=== PATIENT | male | born 1970 | race Caucasian/White ===

== ENCOUNTER 2022-05-09 08:34 | Emergency (ER) | payer OTHER, SELFPAY ==
--- NOTE | 2022-05-09 08:47 | ED.GENADULT ---
HPI - General Adult General Chief complaint: Unspecified Stated complaint: blood pressure Time Seen by Provider: 05/09/22 08:47 Source: patient Mode of arrival: ambulatory Limitations: no limitations History of Present Illness HPI narrative: 51 y/o male without significant medical history presented for multiple complaints. States 5 days ago he had to leave work due to feeling anxious with chest palpitations. States he then purchased a machine for BP and blood glucose monitoring. Reports BS ranging 60-110, BP 147/90 at home. States he does not eat well, will not eat all day then binge one meal in the evening usually pasta. Says he will feel weak if he eats during the day. States BP has been better since he has been off work the past few days. However he reports about 2 nights ago feeling disoriented, felt like 'he wasn't going to wake up,' and had night sweats. Endorses nocturia about 3 times each night. States he may have urinated on himself or it was sweat. Currently denies cp, palpitations, cough, sob, fatigue, wheezing, n/v/d, urinary complaints, fever or chills. Tried to establish with a pcp this week but will take months to be seen. Patient is requesting lab work. Smokes 1.5PPD, marijuana, Drinks alcohol Tommy Beam large bottle per week. Drinks coffee daily, 1-2 cups. He does not have PCP. Related Data Home Medications Medication Instructions Recorded Confirmed No Home Medications 05/09/22 05/09/22 Allergies Allergy/AdvReac Type Severity Reaction Status Date / Time mold Allergy Unknown Verified 06/30/17 21:20 naproxen Allergy Unknown Skin Verified 06/30/17 21:20 Reaction paroxetine Allergy Unknown nervous Verified 06/30/17 21:20 pollen extracts Allergy Unknown Verified 06/30/17 21:20 No Known Allergies Allergy Unverified 08/11/11 10:55 Review of Systems Review of Systems: CONSTITUTIONAL: Denies body aches, fever, chills, Reports sweats. EYES: Denies visual changes, redness, or discharge. ENT: Denies rhinorrhea, congestion, sore throat, or otalgia. CARDIOVASCULAR: Denies chest pain or edema. RESPIRATORY: Denies cough or dyspnea. GASTROINTESTINAL: Denies abdominal pain, nausea, vomiting, or diarrhea. GENITOURINARY: Denies dysuria or hematuria. SKIN: Denies rash, itching, or wounds. MUSCULOSKELETAL: Denies back pain, joint pain, or myalgia. NEUROLOGIC: Denies headache, numbness, tingling, or weakness. PSYCH: Endorses anxiety. All systems reviewed & are unremarkable except as noted in HPI and below PMFSH Comments At time of signature, I have reviewed and agree with nursing past medical, surgical, social and family history unless otherwise noted. Please see nursing chart for further information. There is no relevant family history pertinent to the presenting complaint Exam Narrative: GENERAL: Well-appearing, appears older than stated age HEAD: Normocephalic, atraumatic. EYES: EOMI. No redness or drainage. Conjunctivae normal. ENT: Mucous membranes pink and moist. No rhinorrhea. TMs normal bilaterally. Throat normal. Uvula midline. NECK: Normal AROM. Supple. No lymphadenopathy. CHEST: No respiratory distress. Clear to auscultation. HEART: Tachycardic, Regular rhythm. No murmur appreciated. Normal peripheral pulses. ABDOMEN: Soft, nontender, nondistended, normal active bowel sounds. SKIN: Warm, dry, no rash. Capillary refill normal. Color is jay. Poor skin turgor. NEURO: Alert and oriented x3. Gait steady. PSYCH: Anxious, talkative. Course Course Emergency Course: Patient is aware of diagnosis, understands and agrees to treatment plan. Anticipatory guidance given. Patient agrees to follow-up as directed and is aware of reasons to seek care at the emergency department. Portions of this record may have been created with voice recognition software Level of Care: Express Care Visit Medical Decision Making [facility] Narrative Medical decision making narrative: Patient presented with multiple complai
[2022-05-09 08:53] LABS: Glucose Point of Care 86 mg/dl (65-105)
== END 2022-05-09 09:20 | disposition home or self-care (01) ==
PROVIDERS: Emergency Provider Nurse Practitioner Family
DX: R03.0 Elevated blood-pressure reading, without diagnosis of hypertension (principal); F41.9 Anxiety disorder, unspecified; F17.290 Nicotine dependence, other tobacco product, uncomplicated; F12.90 Cannabis use, unspecified, uncomplicated
CPT/HCPCS: 82948; 99202; G0463

== ENCOUNTER 2022-05-09 11:40 | Emergency (ER) | payer OTHER, SELFPAY ==
[2022-05-09 11:55] VITALS: BP 164/98; PULSE 113; RESP 18; TEMP 37.1; O2SAT 100
[2022-05-09 11:59] LABS: Glucose Point of Care 105 mg/dl (65-105)
--- NOTE | 2022-05-09 13:24 | ECG_ITS ---
Measurements Intervals [place] Rate: 73 P: 84 DC: 149 QRS: 47 QRSD: 84 T: 73 QT: 360 QTc: 398 Interpretive Statements SINUS RHYTHM POSSIBLE LEFT ATRIAL ENLARGEMENT CANNOT RULE OUT SEPTAL INFARCT, AGE INDETERMINATE ABNORMAL ECG NO PREVIOUS ECG AVAILABLE FOR COMPARISON Electronically Signed On 05-09-2022 14:43:48 QUALITY CONTROL TECHNICIAN by Wayne Camarena D.O.
--- NOTE | 2022-05-09 13:25 | ED.GENADULT ---
HPI - General Adult General Chief complaint: Recheck/Abnormal Lab/Rx Stated complaint: high blood sugars Time Seen by Provider: 05/09/22 13:14 History of Present Illness HPI narrative: 51-year-old male here for evaluation of multiple medical complaints. Patient tells me that he has had issues with blood sugar control at home. States I cannot get my blood sugar numbers above 90 no matter what I do . He is not diabetic, when asked why he has a blood sugar reader said he likes to monitor his levels. He also notes intermittent issues with blood pressure control but does not have a cuff at home. He feels levels are out of balance . He has a history of alcohol use (1 pint of hilda beam/week) and quit 2 weeks ago. Denies history of withdrawal symptoms or seizures. Reports anxiety but denies suicidal or homicidal ideation. No chest pain, shortness of breath, fevers or chills, nausea or vomiting, leg swelling, syncope. He is not established with a primary care provider. Related Data Home Medications Medication Instructions Recorded Confirmed No Home Medications 05/09/22 05/09/22 Allergies Allergy/AdvReac Type Severity Reaction Status Date / Time mold Allergy Unknown Verified 06/30/17 21:20 naproxen Allergy Unknown Skin Verified 06/30/17 21:20 Reaction paroxetine Allergy Unknown nervous Verified 06/30/17 21:20 pollen extracts Allergy Unknown Verified 06/30/17 21:20 No Known Allergies Allergy Unverified 08/11/11 10:55 Review of Systems Review of Systems: Gen: Denies fevers or chills Eyes: Denies eye pain or visual change ENT: Denies congestion Respiratory: Denies shortness of breath or cough CV: Denies chest pain or palpitations GI: Denies abdominal pain nausea, emesis or diarrhea : denies burning, urgency, frequency or hematuria Musculoskeletal: Denies back pain or muscle pain Neuro: Denies numbness, tingling, weakness or focal weakness Skin: Denies rash Except as documented, all other systems reviewed and negative Exam Narrative: APPEARANCE: Anxious appearing. No acute distress, nontoxic, resting in bed EYES: EOMI HEENT: Normocephalic, atraumatic, OMM RESPIRATORY: No respiratory distress Clear to auscultation bilaterally with no rhonchi wheezing or rales. CARDIOVASCULAR: Regular rate and rhythm without murmurs rubs or gallops. ABDOMINAL: Soft, nontender, nondistended, no rebound or guarding MUSCULOSKELETAL: Moves all extremities. No clubbing, cyanosis or edema. NEURO: Awake and alert. Following commands, speech normal, no focal deficits SKIN: Warm, dry. No rashes lesions or abrasions PSYCHIATRIC: Normal affect/mood Course Vital Signs Vital signs: Vital Signs Temperature 98.8 F 05/09/22 11:55 Pulse Rate 113 H 05/09/22 11:55 Respiratory Rate 18 05/09/22 11:55 Blood Pressure 164/98 H 05/09/22 11:55 Pulse Oximetry 100 05/09/22 11:55 Oxygen Delivery Room Air 05/09/22 11:55 Temperature 98.8 F 05/09/22 11:55 Pulse Rate 113 H 05/09/22 11:55 Respiratory Rate 18 05/09/22 11:55 Blood Pressure 164/98 H 05/09/22 11:55 Pulse Oximetry 100 05/09/22 11:55 Oxygen Delivery Room Air 05/09/22 11:55 Medical Decision Making [facility] Narrative Medical decision making narrative: 51-year-old male here for evaluation of multiple medical complaints. Patient is difficult to orient and is a poor historian. He is initially tachycardic which resolved without intervention. Vital signs otherwise normal. Suspect large component of his symptoms are due to anxiety; he is not suicidal or homicidal. His basic lab work is unremarkable, patient was most concerned about his blood counts and his blood sugar, which again are normal. EKG is nonischemic and is a normal rate; patient is not complaining of any chest pain or symptoms concerning for ischemia. He will be discharged to follow-up with a primary care provider. Vital Signs Vital Signs: Vital Signs Temperature 98.8 F 05/09/22 11:55 Puls
[2022-05-09 13:39] LABS: Basophils Percent Auto 0.3 % (0.2-1.2); Eosinophils Absolute Auto 0.1 K/mm3 (0-0.3); Eosinophils Percent Auto 0.7 % (0-4.4); Hematocrit 46.5 % (42.0-52.0); Hemoglobin 15.8 g/dL (14.0-18.0); Immature Granulocyte Absolute 0.02 K/mm3 (0.00-0.031); Immature Granulocyte Percent A 0.2 % (0-0.5); Lymphocytes Absolute Auto 2.21 K/mm3 (0.9-3.2); Lymphocytes Percent Auto 21.7 % (18.3-44.2); Mean Corpuscular Hemoglobin 32.7 pg (26-34); Mean Corpuscular Volume 96.3 fl (80-100); Mean Platelet Volume 9.4 fl (7.4-10.4); Monocytes Absolute Auto 0.9 K/mm3 (0.1-0.6); Monocytes Percent Auto 8.8 % (2.6-8.5); Neutrophils Percent Auto 68.3 % (45.5-73.1); Platelet Count Result 323 k/mm3 (150-375); Red Blood Count 4.83 M/mm3 (4.6-6.20); Red Cell Distribution Width 14.2 % (11.5-14.5); White Blood Count 10.2 K/mm3 (4.5-10.0)
[2022-05-09 14:01] LABS: Alanine Aminotransferase 61 U/L (6-50); Alkaline Phosphatase 91 U/L (38-126); Anion Gap 10 mmol/L (8-16); Aspartate Amino Transferase 42 U/L (17-59); Bilirubin,Total 0.6 mg/dL (0.2-1.3); Blood Urea Nitrogen 21 mg/dL (9-20); Calcium 9.3 mg/dL (8.4-10.2); Carbon Dioxide 24 mmol/L (22-30); Chloride 103 mmol/L (98-107); Estimated CRCL calculation 86 ml/min; Estimated Glomerular Filt Rate > 60; Glucose 105 mg/dL (65-110); Lipase 51 U/L (23-300); Potassium 4.8 mmol/L (3.4-5.0); Sodium 137 mmol/L (137-145)
== END 2022-05-09 14:17 | disposition home or self-care (01) ==
PROVIDERS: Physician Assistant; Emergency Provider Emergency Medicine
DX: R03.0 Elevated blood-pressure reading, without diagnosis of hypertension (principal); R94.31 Abnormal electrocardiogram [ECG] [EKG]
CPT/HCPCS: 36415; 80053; 82948; 83690; 85025; 93005; 99283

== ENCOUNTER 2022-05-10 16:18 | Emergency (ER) | payer OTHER, SELFPAY ==
[2022-05-10] VITALS (15 sets, daily range): BP systolic 136–157; BP diastolic 83–111; PULSE 73–108; RESP 14–29; TEMP 36.9; O2SAT 98–100
--- NOTE | ~2022-05-10 | CT_ITS ---
EXAMINATION: CT brain wo con INDICATION: Dizziness and lethargy, lack of coordination COMPARISON: None TECHNIQUE: Standard unenhanced head CT. The dose-length product (DLP) was 605.33 mGy-cm. The mA was a djusted according to patient size. Iterative reconstruction technique was employed. FINDINGS: There is no intracranial hemorrhage, acute infarction, or abnormal mass lesion. The ventric les are normal. There is no abnormal mass effect or midline shift. The woods-white matter differentiat ion is normal. The basal cisterns are patent. The orbits are normal. The paranasal sinuses, mastoids and calvarium are normal. IMPRESSION: 1. No acute intracranial abnormality. Reviewed, dictated and finalized at location F. GRATION MANAGER
--- NOTE | ~2022-05-10 | XR_ITS ---
EXAMINATION: XR chest 2V DATE: 05/10/2022 22:04 INDICATION: Confusion and shortness of breath TECHNIQUE: PA and lateral views of the chest are obtained. COMPARISON: 01/24/2014 FINDINGS: The lungs are free of acute opacities. No pleural effusion or pneumothorax. The cardiomedia stinal silhouette is normal. There is mild thoracic spondylosis. IMPRESSION: 1. No acute cardiopulmonary abnormality. Reviewed, dictated and finalized at location F. OGRAMMETRIST
--- NOTE | 2022-05-10 21:45 | ED.RECABL ---
HPI - Recheck/Abnormal Lab/Rx General Chief Complaint: Recheck/Abnormal Lab/Rx Stated Complaint: htn Time Seen by Provider: 05/10/22 21:19 History of Present Illness HPI narrative: 51-year-old male reports to the emergency room for evaluation of intermittent weakness, lethargy and dizzy and lightheadedness.. Patient states that he feels that his kidneys are failing . Patient recently bought a blood pressure cuff machine as well as a glucometer and has been watching his blood sugars and blood pressures. Patient states his symptoms of been present for 5 days. Patient expresses concern over lab work that was drawn yesterday, and is hyper focused on his creatinine clearance being just below normal. Patient is convinced that his kidneys are failing and is requesting study to assess for the blood flow through his kidneys. Patient states he knows that his sodium and potassium levels are off to, which is why he has been eating spinach and bananas. Patient appears very anxious during the interview. Related Data Allergies Allergy/AdvReac Type Severity Reaction Status Date / Time mold Allergy Unknown Verified 06/30/17 21:20 naproxen Allergy Unknown Skin Verified 06/30/17 21:20 Reaction paroxetine Allergy Unknown nervous Verified 06/30/17 21:20 pollen extracts Allergy Unknown Verified 06/30/17 21:20 No Known Allergies Allergy Unverified 08/11/11 10:55 Review of Systems Review of Systems: CONSTITUTIONAL: Denies fever, chills, or sweats. EYES: Denies visual changes, redness, or discharge. ENT: Denies rhinorrhea, congestion, sore throat, or otalgia. CARDIOVASCULAR: Denies chest pain, palpitations, or edema. RESPIRATORY: Denies cough or dyspnea. GASTROINTESTINAL: Denies abdominal pain, nausea, vomiting, or diarrhea. GENITOURINARY: Denies dysuria or hematuria. SKIN: Denies rash or itching. MUSCULOSKELETAL: Denies back pain, joint pain, or myalgia. NEUROLOGIC: Reports dizziness, or weakness. PSYCHIATRIC: Reports anxiety. Course Vital Signs Vital signs: Vital Signs Temperature 36.9 C 05/10/22 16:40 Pulse Rate 108 H 05/10/22 16:40 Respiratory Rate 14 05/10/22 16:40 Blood Pressure 157/86 H 05/10/22 16:40 Pulse Oximetry 99 05/10/22 16:40 Oxygen Delivery Room Air 05/10/22 16:40 Temperature 36.9 C 05/10/22 16:40 Pulse Rate 75 05/10/22 23:31 Respiratory Rate 24 H 05/10/22 23:31 Blood Pressure 136/93 H 05/10/22 23:30 Pulse Oximetry 100 05/10/22 23:26 Oxygen Delivery Room Air 05/10/22 16:40 MDM - Recheck/Abnormal Lab/Rx MDM Narrative Medical decision making narrative: Patient presented to the emergency room again with multiple complaints. Attempted to provide education to the patient regarding his diagnostics and his lab work. Patient was not receptive as he was hyper focused on his WBCs being 10.2, and his RBCs being 4.83 which is low . Patient is convinced that he is in kidney failure, and was demanding a kidney flow test . Strongly encourage patient to follow-up with primary care physician. Patient was agreeable to start antianxiety medication. Lab Data Result diagrams: 05/10/22 22:13 05/10/22 22:13 Labs: Lab Results 05/10/22 05/10/22 05/10/22 Range/Units 22:13 22:13 22:13 WBC 9.3 (4.5-10.0) K/mm3 RBC 4.41 L (4.6-6.20) M/mm3 Hgb 14.3 (14.0-18.0) g/dL Hct 42.0 (42.0-52.0) % MCV 95.2 (80-100) fl MCH 32.4 (26-34) pg MCHC 34.0 (32-36) g/dl RDW 14.0 (11.5-14.5) % Plt Count 310 (150-375) k/mm3 MPV 9.4 (7.4-10.4) fl Immature Gran % (Auto) 0.3 (0-0.5) % Neut % (Auto) 67.4 (45.5-73.1) % Lymph % (Auto) 22.2 (18.3-44.2) % Clay % (Auto) 8.4 (2.6-8.5) % Eos % (Auto) 1.3 (0-4.4) % Baso % (Auto) 0.4 (0.2-1.2) % Lymph # (Auto) 2.06 (0.9-3.2) K/mm3 Clay # (Auto) 0.8 H (0.1-0.6) K/mm3 Eos # (Auto) 0.1 (0-0.3) K/mm3 Baso # (Auto) 0.0 (0.0-0.1) K/mm3 Abs Immat Gran (a
--- NOTE | 2022-05-10 21:46 | ECG_ITS ---
Measurements Intervals [place] Rate: 89 P: 86 DC: 165 QRS: 52 QRSD: 81 T: 73 QT: 347 QTc: 423 Interpretive Statements SINUS RHYTHM WITH SINUS ARRHYTHMIA POSSIBLE RIGHT ATRIAL ENLARGEMENT LEFT ATRIAL ENLARGEMENT CANNOT RULE OUT SEPTAL INFARCT, AGE INDETERMINATE BORDERLINE ST ABNORMALITY- INF/LAT LEADS BASELINE ARTIFACT- I, II, AVR, AVL ABNORMAL ECG COMPARED TO ECG 05/09/2022 13:45:02 SINUS ARRHYTHMIA NOW PRESENT Electronically Signed On 05-11-2022 5:49:14 DRY CLEANING MACHINE OPERATOR HELPER by Wayne Camarena D.O.
[2022-05-10 22:19] LABS: Basophils Percent Auto 0.4 % (0.2-1.2); Eosinophils Absolute Auto 0.1 K/mm3 (0-0.3); Eosinophils Percent Auto 1.3 % (0-4.4); Hemoglobin 14.3 g/dL (14.0-18.0); Immature Granulocyte Absolute 0.03 K/mm3 (0.00-0.031); Immature Granulocyte Percent A 0.3 % (0-0.5); Lymphocytes Absolute Auto 2.06 K/mm3 (0.9-3.2); Lymphocytes Percent Auto 22.2 % (18.3-44.2); Mean Corpuscular Hemoglobin 32.4 pg (26-34); Mean Corpuscular Volume 95.2 fl (80-100); Mean Platelet Volume 9.4 fl (7.4-10.4); Monocytes Absolute Auto 0.8 K/mm3 (0.1-0.6); Monocytes Percent Auto 8.4 % (2.6-8.5); Neutrophils Absolute Auto 6.3 K/mm3 (1.3-6.7); Neutrophils Percent Auto 67.4 % (45.5-73.1); Platelet Count Result 310 k/mm3 (150-375); Red Blood Count 4.41 M/mm3 (4.6-6.20); White Blood Count 9.3 K/mm3 (4.5-10.0)
[2022-05-10 22:33] LABS: Alanine Aminotransferase 48 U/L (6-50); Albumin Level 4.7 g/dL (3.5-5.1); Alkaline Phosphatase 75 U/L (38-126); Anion Gap 15 mmol/L (8-16); Aspartate Amino Transferase 39 U/L (17-59); Bilirubin,Total 0.4 mg/dL (0.2-1.3); Blood Urea Nitrogen 20 mg/dL (9-20); Calcium 9.3 mg/dL (8.4-10.2); Carbon Dioxide 24 mmol/L (22-30); Chloride 99 mmol/L (98-107); Estimated CRCL calculation 79 ml/min; Estimated Glomerular Filt Rate > 60; Glucose 181 mg/dL (65-110); Potassium 3.8 mmol/L (3.4-5.0); Sodium 138 mmol/L (137-145)
[2022-05-10 23:15] LABS: Hemoglobin A1C 5.4 % (<5.7)
[2022-05-10 23:17] LABS: Appearance Urine Clear (Clear); Bilirubin Urine Negative (Negative); Blood Urine Trace-intact (Negative); Color Urine Yellow (Yellow); Glucose Urine UA 1+ mg/dL (Negative); Ketones Urine Trace mg/dL (Negative); Leukocyte Esterase Ur Negative LEU/UL (Negative); Nitrate Urine Negative (Negative); Protein Urine Negative (Negative); Specific Grav Ur 1.015 (1.001-1.035); Urobilinogen Urine 0.2 mg/dL (<2.0); pH Urine 5.5 (5.0-9.0)
[2022-05-10 23:18] LABS: Add Urine Microscopic? YES; RBC Urine 0-2 /hpf (0-2); Squamous Epithelial Cell Urine Rare /hpf (Few)
[2022-05-10 23:30] LABS: Troponin I < 0.012 ng/mL (0.000-0.034)
== END 2022-05-11 00:10 | disposition home or self-care (01) ==
PROVIDERS: Emergency Provider Nurse Practitioner Family
DX: F41.9 Anxiety disorder, unspecified (principal); R94.31 Abnormal electrocardiogram [ECG] [EKG]
CPT/HCPCS: 36415; 70450; 71046; 80053; 81001; 83036; 84443; 84484; 85025; 93005; 99284